=== PATIENT | male | born 1970 | race Caucasian/White ===

== ENCOUNTER 2025-01-26 20:56 | Emergency (ER) | payer OTHER, SELFPAY ==
[2025-01-26 20:58] VITALS: BP 167/95
[2025-01-26 21:10] VITALS: BP 167/95
--- NOTE | 2025-01-26 21:57 | EDRN ---
Patient pulled off monitor and standing at the door of room, told him we were waiting for his to get here, offered something to eat and drink, patient said he would have something, back in bed resting and lunch box and water provided.
--- NOTE | 2025-01-26 22:10 | ED.GENMED ---
History of Present Illness
<John Stafford DO - Last Filed: 01/26/25 22:12>
General
Chief Complaint: Alcohol Problem
Time Seen by Provider: 01/26/25 21:13
<Thea Vitale PA-C - Last Filed: 01/27/25 02:40>
General
Source: patient
Exam Limitations: none
History of Present Illness
History of Present Illness:
54yoM with no pertinent past medical history presenting via EMS for evaluation of alcohol intoxication. History is provided by and mother via phone. Mother reports that patient is an alcoholic and drinks heavily. He takes a form of Xanax
every night. He was drinking all day today and reportedly took a Xanax tonight. was having difficulty arousing him this evening and became concerned so called EMS. Patient has no complaints at this time and is unsure why he is here. He
denies daily alcohol use.
Past History
<John Stafford DO - Last Filed: 01/26/25 22:12>
Past History
ED Past Medical History: Other (sleep apnea, CPAP)
Social History
Tobacco: Non-smoker
Personal: Single
Living: with family
Employment: Employed
Phy Exam
<Thea Vitale PA-C - Last Filed: 01/27/25 02:40>
Physical Exam
Physical Exam:
Intoxicated. Awake, alert, maintaining airway
General Physical Exam
General Presentation: well appearing and no apparent distress
General Skin: warm and dry
General Habitus: normal
General Mental: appears intoxicated
ENT Exam
ENT Exam: normocephalic
Cardiovascular Exam
Cardiovascular Exam: regular rate/rhythm and no murmur
Pulmonary Exam
Pulmonary Exam: lungs clear, no respiratory distress, no rales, no crackles, no rhonchi and no wheezing
Neurological Exam
Neurological Exam: alert
Skin Exam
Skin Exam: normal color and warm/dry
Scores
<Thea Vitale PA-C - Last Filed: 01/27/25 02:40>
Withdrawal Assessment of Alcohol
Withdrawal Assessment Completed?: Not applicable
Course
<John Stafford DO - Last Filed: 01/26/25 22:12>
Vital Signs
Initial and Last Documented VS:
Initial Vital Signs
BP
167/95
01/26/25 20:58
Last Documented Vital Signs
Temp Pulse Resp BP Pulse Ox
98.6 F 79 13 167/95 96
01/26/25 21:10 01/26/25 21:15 01/26/25 21:15 01/26/25 21:10 01/26/25 21:10
<Thea Vitale PA-C - Last Filed: 01/27/25 02:40>
Vital Signs
Initial and Last Documented VS:
Initial Vital Signs
BP
167/95
01/26/25 20:58
Last Documented Vital Signs
Temp Pulse Resp BP Pulse Ox
98.6 F 79 13 167/95 96
01/26/25 21:10 01/26/25 21:15 01/26/25 21:15 01/26/25 21:10 01/26/25 21:10
<Thea Vitale PA-C - Last Filed: 01/27/25 02:40>
MDM/Problems Addressed
Differential Diagnosis Includes:
54yoM here for alcohol intoxication. Family reports history of heavy alcohol use although patient denies this. He was reportedly drinking all day and took a Xanax this evening. had a difficult time waking him up so called EMS. Patient is
intoxicated on arrival but is awake, alert, and maintaining airway.
Patient observed for 2+ hours. He remains awake and is ambulating with a steady gait. Patient became agitated and is requesting for his to pick him up. was called and agrees to transport him home and monitor him. Offered [facility]
evaluation/resources which patient repeatedly declines. He was discharged in stable condition.
<Thea Vitale PA-C - Last Filed: 01/27/25 02:40>
*Critical Care Note
Total Time (30-74mins, 75-104mins- exclusive of procedures): Not Applicable
ED Attending Note
<John Stafford, - Last Filed: 01/26/25 22:12>
ED Attending Note
Patient seen and examined by attending physician: Yes
ED Attending Note:
I have reviewed and agree with history and treatment plan by Thea Vitale PA-C. My exam revealed 54-year-old male no acute distress, intoxicated. Patient stable for discharge, but with a responsible adult. No signs of trauma.
-
Portions of this chart may have been created with voice recognition software.� Occasional wrong word or��sound alike� substitutions may have occurred due to the inherent limitations of voice recognition software.
Discharge Plan
Departure
Patient Disposition: Home (Routine Discharge)
Date of Disposition: 01/26/25
Time of Disposition: 23:07
Patient with high blood pressure during this ER visit?: Yes
Discharge Problem:
Alcohol intoxication
Instructions: Alcohol intoxication - ED discharge instructions
Referrals:
UNKNOWN - PT DOES,NOT KNOW [Family Provider] -
Interventions
Interventions:
*Risk Screen - Suicide Last Done: 01/26/25 21:10
*General Assessment Last Done: 01/26/25 21:10
*Neglect/Abuse Screening Last Done: 01/26/25 21:10
*ED- Fall Risk Assessment Last Done: 01/26/25 23:30
*ED COVID-19 Vaccine History Last Done: 01/26/25 21:10
*Nursing Disposition Last Done: 01/26/25 23:30
ED- Neurological Assessment Last Done: 01/26/25 21:30
ED-Psychological Assessment Last Done: 01/26/25 21:30
Discharge Date and Time
Discharge Date/Time: 01/26/25 23:34
Print Language: KENYAN
--- NOTE | 2025-01-26 22:30 | EDRN ---
Patient out of the room walking down the hallway, asked patient where he was going, reports he wants to go home, security was called, patient was escorted back to the room, patient cursing and yelling, however does go back into the room, we asked if
we could call his family for him, he states yes, number on the chart was called, GINETTE Singh spoke with on the phone, she states they will come and get him
--- NOTE | 2025-01-26 23:00 | EDRN ---
Patient cursing from in the room, security is at bedside as well as Dr. johns, patient telling everyone to 'fuck off', patient asked to stop cursing, patient lays down, staff steps out of the room, security remains outside the door, patient did
stop yelling.
--- NOTE | 2025-01-26 23:29 | EDRN ---
Patients family is here to get him, asked for a number for [facility], phone number and a pamphlet provided for family along with discharge papers, patient taken out in a wheelchair to family's car.
== END 2025-01-26 23:34 | disposition home or self-care (01) ==
LOC: EMR 20:56
PROVIDERS: EMERGENCY PHYSICIAN Emergency Medicine
DX: F10.229 Alcohol dependence with intoxication, unspecified (principal); G47.30 Sleep apnea, unspecified; Z79.899 Other long term (current) drug therapy
CPT/HCPCS: 99282